=== PATIENT | female | born 1945 | race Caucasian/White ===

== ENCOUNTER 2017-06-04 03:23 | Inpatient (IN) | payer MEDICARE ==
[2017-06-04] VITALS (8 sets, daily range): BP systolic 96–113; BP diastolic 52–67; PULSE 62–110; RESP 16–20; TEMP 98–100.4; O2SAT 96–99
[~2017-06-04] VITALS: Ht 154.9 cm; Wt 65.5 kg
[2017-06-04] MEDS ORDERED: SODIUM CHLOR 0.9% 1000 ML INJ 1,000 ML IV SCH (03:41)
[2017-06-04] MEDS ORDERED: SODIUM CHLORIDE 0.9% FLUSH 10 ML FLUSH IV FLUSH PRN ×2 (03:45→06:15)
[2017-06-04] MEDS ORDERED: METOCLOPRAMIDE HCL 10 MG/2 ML VIAL IV PUSH ONE (03:45)
[2017-06-04] MEDS ORDERED: KETOROLAC TROMETHAMINE 30 MG/ML (IVP) VIAL IV PUSH ONE (03:45)
[2017-06-04] MEDS ORDERED: LIPI40TA PO (04:06)
[2017-06-04 04:14] LABS: AUTOMATED NEUTROPHIL # 5.9 TH/MM3 (1.8-7.7); BASOPHIL # 0.1 TH/MM3 (0-0.2); BASOPHIL % 0.7 % (0.0-2.0); EOSINOPHIL # 0.2 TH/MM3 (0-0.4); EOSINOPHIL % 2.2 % (0.0-4.0); HEMATOCRIT 37.1 % (35.0-46.0); HEMOGLOBIN 12.9 GM/DL (11.6-15.3); LYMPH % 9.8 % (9.0-44.0); LYMPHOCYTE # 0.7 TH/MM3 (1.0-4.8); MEAN CELL VOLUME 90.6 FL (80.0-100.0); MEAN CORPUSCULAR HEMOGLOBIN 31.3 PG (27.0-34.0); MEAN CORPUSCULAR HGB CONC 34.6 % (32.0-36.0); MEAN PLATELET VOLUME 8.2 FL (7.0-11.0); MONO % 8.3 % (0.0-8.0); MONOCYTE # 0.6 TH/MM3 (0-0.9); PLATELET COUNT 231 TH/MM3 (150-450); RED CELL DISTRIBUTION WIDTH 13.9 % (11.6-17.2); WHITE BLOOD COUNT 7.4 TH/MM3 (4.0-11.0)
[2017-06-04 04:24] LABS: INTERNATIONAL NORMALIZED RATIO 1.3 RATIO; PROTHROMBIN TIME - PATIENT 12.7 SEC (9.8-11.6)
[2017-06-04 04:31] LABS: ALKALINE PHOSPHATASE 226 U/L (45-117); TOTAL BILIRUBIN ADULT 4.3 MG/DL (0.2-1.0); TOTAL PROTEIN 6.9 GM/DL (6.4-8.2)
--- NOTE | 2017-06-04 04:33 | PD ---
HPI Chief Complaint: Complaint Time Seen by Provider: 03:35 Travel History International Travel<30 days: No Contact w/Intl Traveler<30days: No Traveled to known affect area: No History of Present Illness HPI 71-year-old female here for evaluation of flulike symptoms, abdominal pain, hematuria, dysuria, vomiting. Symptoms started 2 days ago. The patient is here on vacation from [place]. She states that she went to an urgent care facility yesterday and was diagnosed with the flu, however they did not start her on Tamiflu because she was outside of the 72 hour window. She describes fever, headache, neck pain which is moderate. She had one episode of vomiting yesterday. History of hysterectomy, appendectomy, cholecystectomy. PFSH Past Medical History High Cholesterol: Yes Tetanus Vaccination: > 5 Years Influenza Vaccination: No Past Surgical History Hysterectomy: Yes Other Surgery: Yes (Spinal surgery 2016) Social History Alcohol Use: No Tobacco Use: No Substance Use: No Allergies-Medications (Allergen,Severity, Reaction): Coded Allergies: codeine (Verified Allergy, Unknown, 06/04/17) Reported Meds & Prescriptions Reported Meds & Active Scripts Active Reported Lipitor (Atorvastatin Calcium) 40 Mg Tab 40 Mg PO HS Review of Systems Except as stated in HPI: all other systems reviewed are Neg Physical Exam Narrative GENERAL: Well-developed, well-nourished, comfortable, no apparent distress. SKIN: Focused skin assessment warm/dry. No rash. HEAD: Atraumatic. Normocephalic. EYES: Pupils equal and round. No scleral icterus. No injection or drainage. ENT: No nasal bleeding or discharge. Mucous membranes pink and moist. Normal pharynx. Bilateral tympanic membranes and external auditory canals are normal. NECK: Trachea midline. No JVD. No nuchal rigidity. CARDIOVASCULAR: Regular rate and rhythm. RESPIRATORY: No accessory muscle use. Clear to auscultation. Breath sounds equal bilaterally. GASTROINTESTINAL: Abdomen soft, non-tender, nondistended. MUSCULOSKELETAL: No obvious deformities. No clubbing. No cyanosis. No edema. NEUROLOGICAL: Awake and alert. No obvious cranial nerve deficits. Motor grossly within normal limits. Normal speech. PSYCHIATRIC: Appropriate mood and affect; insight and judgment normal. Data Data Last Documented VS Vital Signs Date Time Temp Pulse Resp B/P (MAP) Pulse Ox O2 Delivery O2 Flow Rate FiO2 06/04/17 04:12 99 Room Air 06/04/17 03:24 98.8 94 16 113/67 (82) Orders Orders Complete Blood Count With Diff (06/04/17 03:41) Comprehensive Metabolic Panel (06/04/17 03:41) Lipase (06/04/17 03:41) Prothrombin Time / Inr (Pt) (06/04/17 03:41) Act Partial Throm Time (Ptt) (06/04/17 03:41) Urinalysis - C+S If Indicated (06/04/17 03:41) Ct Abd/Pel W Iv Contrast(Rout) (06/04/17 03:41) Iv Access Insert/Monitor (06/04/17 03:41) Ecg Monitoring (06/04/17 03:41) Oximetry (06/04/17 03:41) Sodium Chlor 0.9% 1000 Ml Inj (Ns 1000 M (06/04/17 03:41) Sodium Chloride 0.9% Flush (Ns Flush) (06/04/17 03:45) Metoclopramide Inj (Reglan Inj) (06/04/17 03:45) Ketorolac Inj (Toradol Inj) (06/04/17 03:45) Influenzae A/B Antigen (06/04/17 03:41) Chest, Single Ap (06/04/17 ) Cath For Specimen (06/04/17 04:50) Iohexol 350 Inj (Omnipaque 350 Inj) (06/04/17 05:07) Urine Culture (06/04/17 05:00) Labs Laboratory Tests Test 06/04/17 03:55 06/04/17 05:00 White Blood Count 7.4 TH/MM3 Red Blood Count 4.10 MIL/MM3 Hemoglobin 12.9 GM/DL Hematocrit 37.1 % Mean Corpuscular Volume 90.6 FL Mean Corpuscular Hemoglobin 31.3 PG Mean Corpuscular Hemoglobin Concent 34.6 % Red Cell Distribution Width 13.9 % Platelet Count 231 TH/MM3 Mean Platelet Volume 8.2 FL Neutrophils (%) (Auto) 79.0 % Lymphocytes (%) (Auto) 9.8 % Monocytes (%) (Auto) 8.3 % Eosinophils (%) (Auto) 2.2 % Basophils (%) (Auto) 0.7 % Neutrophils # (Auto) 5.9 TH/MM3 Lymphocytes # (Auto) 0.7 TH/MM3 Monocytes # (Auto) 0.6 TH/MM3 Eosinophils # (Auto) 0.2 TH/MM3 Basophils # (Auto) 0.1 TH/MM3 CBC Comment DIFF FINAL Differential Comment Prothrombin Time 12.7 SEC Prothromb Time International Ratio 1.3 RATIO Activated Partial Thromboplast Time 29.2 SEC Blood Urea Nitrogen 18 MG/DL Creatinine 0.97 MG/DL Random Glucose 119 MG/DL Total Protein 6.9 GM/DL Albumin 3.1 GM/DL Calcium Level 8.8 MG/DL Alkaline Phosphatase 226 U/L Aspartate Amino Transf (AST/SGOT) 375 U/L Alanine Aminotransferase (ALT/SGPT) 658 U/L Total Bilirubin 4.3 MG/DL Sodium Level 136 MEQ/L Potassium Level 3.8 MEQ/L Chloride Level 103 MEQ/L Carbon Dioxide Level 24.0 MEQ/L Anion Gap 9 MEQ/L Estimat Glomerular Filtration Rate 57 ML/MIN Lipase 782 U/L Urine Color DARK-BROWN Urine Turbidity CLOUDY Urine pH 6.0 Urine Specific [place] 1.024 Urine Protein 100 mg/dL Urine Glucose (UA) NEG mg/dL Urine Ketones NEG mg/dL Urine Occult Blood SMALL Urine Nitrite NEG Urine Bilirubin MOD Urine Urobilinogen 4.0 MG/DL Urine Leukocyte Esterase LARGE Urine RBC 21 /hpf Urine WBC /hpf Urine Squamous Epithelial Cells 47 /hpf Urine Bacteria MANY /hpf Urine Mucus MANY /lpf Microscopic Urinalysis Comment CULTURE INDICATED MDM Medical Decision Making Medical Screen Exam Complete: Yes Emergency Medical Condition: Yes Differential Diagnosis Influenza, viral illness, URI, pneumonia, UTI, colitis, diverticulitis, dehydration/metabolic abnormality Narrative Course Vital signs reviewed. CBC is unremarkable. CMP is remarkable for T bili 4.3, AST 375, ALT 658, alk phos 226. Lipase is 382. UA Influenza is negative. Chest x-ray read as the lungs are clear. CT abdomen and pelvis read as no acute findings in the abdomen or pelvis. Patient was made aware of all findings. She has an occasional alcoholic beverage. She denies travel outside the country recently. She denies using Tylenol. The patient will be admitted for further treatment and evaluation of acute hepatitis, hyperbilirubinemia, elevated lipase. Diagnosis Primary Impression: Transaminitis Additional Impressions: Hyperbilirubinemia Elevated lipase UTI (urinary tract infection) Qualified Codes: N39.0 - Urinary tract infection, site not specified; R31.9 - Hematuria, unspecified Amos Tee MD Jun 04, 2017 04:33
[2017-06-04 04:35] LABS: ALBUMIN 3.1 GM/DL (3.4-5.0); ALT (GPT) 658 U/L (10-53); AST (GOT) 375 U/L (15-37); BLOOD UREA NITROGEN 18 MG/DL (7-18); CALCIUM 8.8 MG/DL (8.5-10.1); CHLORIDE 103 MEQ/L (98-107); CREATININE 0.97 MG/DL (0.50-1.00); GLOMERULAR FILTRATION RATE 57 ML/MIN (>89); GLUCOSE,RANDOM 119 MG/DL (74-106); SODIUM (NA) 136 MEQ/L (136-145)
[2017-06-04] MEDS ORDERED: IOHEXOL 350 MG/ML 10 ML VIAL (for RAD DIAG) IVCONTRAST ONE (05:07)
--- NOTE | 2017-06-04 05:19 | RADRPT ---
EXAM DATE/TIME: 06/04/2017 04:52 [facility] COMPARISON: No previous studies available for comparison. INDICATIONS : Fever and painful urination MEDICAL HISTORY : Hypercholesterolemia. SURGICAL HISTORY : Hysterectomy. ENCOUNTER: Initial ACUITY: 1 day PAIN SCORE: 8/10 LOCATION: Bilateral chest FINDINGS: A single view of the chest demonstrates the lungs to be symmetrically aerated without evidence of mas s, infiltrate or effusion. The cardiomediastinal contours are unremarkable. Osseous structures are intact. CONCLUSION: The lungs are clear. Brennan Estrada MD on June 04, 2017 at 5:18 Board Certified Radiologist. This report was verified electronically.
--- NOTE | 2017-06-04 05:26 | RADRPT ---
EXAM DATE/TIME: 06/04/2017 04:58 [facility] COMPARISON: No previous studies available for comparison. INDICATIONS : Patient with flu complains of abdominal pain, nausea and vomiting. Patient also has hematuria. IV CONTRAST: 96 cc Omnipaque 350 (iohexol) IV ORAL CONTRAST: No oral contrast ingested. RADIATION DOSE: 8.11 CTDIvol (mGy) MEDICAL HISTORY : Hypercholesterolemia. SURGICAL HISTORY : Appendectomy. Hysterectomy.Cholecystectomy. ENCOUNTER: Initial ACUITY: 2 days PAIN SCALE: 6/10 LOCATION: abdomen TECHNIQUE: Volumetric scanning of the abdomen and pelvis was performed. Using automated exposure control and ad justment of the mA and/or kV according to patient size, radiation dose was kept as low as reasonably achievable to obtain optimal diagnostic quality images. DICOM format image data is available electro nically for review and comparison. FINDINGS: LOWER LUNGS: The visualized lower lungs are clear. LIVER: Homogeneous density without solid lesion. 2.4 cm simple cyst lateral segment left lobe. There is no dilation of the biliary tree. Cholecystectomy. SPLEEN: Normal size without lesion. PANCREAS: Within normal limits. KIDNEYS: Normal in size and shape. There is no mass, stone or hydronephrosis. 1.3 cm cyst midpole left kidne y. ADRENAL GLANDS: Within normal limits. VASCULAR: There is no aortic aneurysm. BOWEL/MESENTERY: The stomach, small bowel, and colon demonstrate no acute abnormality. There is no free intraperitone al air or fluid. ABDOMINAL WALL: Within normal limits. RETROPERITONEUM: There is no lymphadenopathy. BLADDER: No wall thickening or mass. REPRODUCTIVE: Within normal limits. INGUINAL: There is no lymphadenopathy or hernia. MUSCULOSKELETAL: Bilateral transpedicular screws at L3, L4, L5. CONCLUSION: 1. No concerning findings in the abdomen/pelvis. Brennan Estrada MD on June 04, 2017 at 5:18 Board Certified Radiologist. This report was verified electronically.
[2017-06-04 05:31] LABS: BACTERIA, URINE MANY /hpf; BILIRUBIN, URINE MOD (NEG); BLOOD, URINE SMALL (NEG); GLUCOSE,URINE NEG (NEG); KETONE, URINE NEG (NEG); MUCUS URINE MANY /lpf (OCC); NITRITE,URINE NEG (NEG); SQUAMOUS EPITHELIAL CELL URINE 47 /hpf (0-5); URINE LEUKOCYTE ESTERASE LARGE (NEG)
[2017-06-04 05:35] LABS: URINE COLOR DARK-BROWN (YELLW/STRAW)
[2017-06-04] MEDS ORDERED: cefTRIAXone INJ 1,000 MG in SODIUM CHLORIDE 0.9% INJ 100 ML IV ONE (05:45)
[2017-06-04] MEDS ORDERED: ONDANSETRON HCL 4 MG/2 ML VIAL IVP PRN (06:15)
[2017-06-04] MEDS ORDERED: MORPHINE SULFATE 2 MG/ML INJ IV PUSH PRN (06:15)
[2017-06-04] MEDS ORDERED: BISACODYL 10 MG SUPP RECTAL PRN (06:15)
[2017-06-04] MEDS ORDERED: MAGNESIUM HYDROXIDE SUSP 30 ML CUP PO PRN (06:15)
[2017-06-04] MEDS ORDERED: LACTULOSE SYRUP 20 GM/30 ML CUP PO PRN (06:15)
[2017-06-04] MEDS ORDERED: SENNOSIDES 8.6 MG TAB PO PRN (06:15)
[2017-06-04] MEDS: SODIUM CHLOR 0.9% 1000 ML INJ 1,000 ML IV SCH ×3 (06:36→17:07)
[2017-06-04] MEDS: SODIUM CHLORIDE 0.9% FLUSH 10 ML FLUSH IV FLUSH SCH ×2 (08:53→20:53)
[2017-06-04] MEDS: DOCUSATE SODIUM 50 MG/SENNA 8.6 MG TAB PO SCH ×2 (08:54→20:54)
--- NOTE | 2017-06-04 09:17 | PD.CONS ---
HPI History of Present Illness This is a 71 year old female who had initial onset of mid abdominal pain with flulike symptoms of aching. According to the record she went to the urgent care and was diagnosed with the flu but was not started on Tamiflu because she was out of the 72 hour window. She did have one episode of nausea and vomiting on admission 06/03/17 to the emergency room, and has started with one episode of diarrhea this a.m. patient denies any bleeding or blood noted. During the exam patient states that her abdominal pain has completely subsided. She notes history of gallbladder surgery greater than 10 years ago and at that time had EGD and colonoscopy in the [facility]. She's currently on vacation and was hoping to return home by flight tomorrow or Monday. Patient currently is being treated with IV fluids, heart rate has been between 94 and 110, hemoglobin 12.9., Initial bilirubin 4.3, elevated LFTs 375/658, alkaline phosphatase 226, lipase 782. Currently patient has no obvious bleeding, denies any dysphasia, no further nausea or vomiting, denies any previous history of GI disorders or pancreatitis. (Jessica Gonzalez) PFSH Past Medical History Hyperlipidemia gallbladder disorders Past Surgical History Cholecystectomy Hysterectomy Spinal surgery 2015 according to the record (Jessica Gonzalez) Coded Allergies: codeine (Verified Allergy, Unknown, 06/04/17) Medications Administered Medications Medications (Trade) Dose Ordered Sig/José Luis Route PRN Reason Start Time Stop Time Status Last Admin Dose Admin Sodium Chloride 1,000 ml @ 100 mls/hr Q10H IV 06/04/17 06:03 06/04/17 06:36 Family History NA Social History Patient's currently lives with her Denies any tobacco, alcohol, or illicit drug use (Jessica Gonzalez) Review of Systems Gastrointestinal: COMPLAINS OF: Abdominal pain (now subsided within 24 hours), Diarrhea (started this a.m.), Nausea, Vomiting (now subsided it's admission) ( Jessica Gonzalez) GI Exam Vitals I&O Vital Signs Date Time Temp Pulse Resp B/P (MAP) Pulse Ox O2 Delivery O2 Flow Rate FiO2 06/04/17 08:39 98.0 105 20 96/54 (68) 96 06/04/17 06:35 110 16 100/59 (73) 96 Room Air 06/04/17 04:12 99 Room Air 06/04/17 03:24 98.8 94 16 113/67 (82) 97 Imaging Last Impressions Abdomen/Pelvis CT 06/04/17 0341 Signed Impressions: Service Date/Time: Sunday, June 04, 2017 04:58 - CONCLUSION: 1. No concerning findings in the abdomen/pelvis. Brennan Estrada MD Chest X-Ray 06/04/17 0000 Signed Impressions: Service Date/Time: Sunday, June 04, 2017 04:52 - CONCLUSION: The lungs are clear. Brennan Estrada MD Laboratory Test 06/04/17 03:55 06/04/17 05:00 White Blood Count 7.4 TH/MM3 Red Blood Count 4.10 MIL/MM3 Hemoglobin 12.9 GM/DL Hematocrit 37.1 % Mean Corpuscular Volume 90.6 FL Mean Corpuscular Hemoglobin 31.3 PG Mean Corpuscular Hemoglobin Concent 34.6 % Red Cell Distribution Width 13.9 % Platelet Count 231 TH/MM3 Mean Platelet Volume 8.2 FL Neutrophils (%) (Auto) 79.0 % Lymphocytes (%) (Auto) 9.8 % Monocytes (%) (Auto) 8.3 % Eosinophils (%) (Auto) 2.2 % Basophils (%) (Auto) 0.7 % Neutrophils # (Auto) 5.9 TH/MM3 Lymphocytes # (Auto) 0.7 TH/MM3 Monocytes # (Auto) 0.6 TH/MM3 Eosinophils # (Auto) 0.2 TH/MM3 Basophils # (Auto) 0.1 TH/MM3 CBC Comment DIFF FINAL Differential Comment Prothrombin Time 12.7 SEC Prothromb Time International Ratio 1.3 RATIO Activated Partial Thromboplast Time 29.2 SEC Blood Urea Nitrogen 18 MG/DL Creatinine 0.97 MG/DL Random Glucose 119 MG/DL Total Protein 6.9 GM/DL Albumin 3.1 GM/DL Calcium Level 8.8 MG/DL Alkaline Phosphatase 226 U/L Aspartate Amino Transf (AST/SGOT) 375 U/L Alanine Aminotransferase (ALT/SGPT) 658 U/L Total Bilirubin 4.3 MG/DL Sodium Level 136 MEQ/L Potassium Level 3.8 MEQ/L Chloride Level 103 MEQ/L Carbon Dioxide Level 24.0 MEQ/L Anion Gap 9 MEQ/L Estimat Glomerular Filtration Rate 57 ML/MIN Lipase 782 U/L Acetaminophen Level LESS THAN 2.0 MCG/ML Urine Color DARK-BROWN Urine Turbidity CLOUDY Urine pH 6.0 Urine Specific [place] 1.024 Urine Protein 100 mg/dL Urine Glucose (UA) NEG mg/dL Urine Ketones NEG mg/dL Urine Occult Blood SMALL Urine Nitrite NEG Urine Bilirubin MOD Urine Urobilinogen 4.0 MG/DL Urine Leukocyte Esterase LARGE Urine RBC 21 /hpf Urine WBC /hpf Urine Squamous Epithelial Cells 47 /hpf Urine Bacteria MANY /hpf Urine Mucus MANY /lpf Microscopic Urinalysis Comment CULTURE INDICATED Date/Time Source Procedure Growth Status 06/04/17 03:30 Nasal Washing Influenza Types A,B Antigen (ROCKY) - Final NEGATIVE FOR FLU A AND B ANTIGEN.... Complete 06/04/17 05:00 Urine Clean Catch Urine Culture Pending Received Physical Examination HEENT: Pupils round and reactive to light sclera dull; normocephalic; atraumatic ; oral clean NECK: Neck is supple, no JVD, no lymphadenopathy. CHEST: Chest anterior and posterior, no wheeze or rhonchi CARDIAC: HR 95-110 with mobility ABDOMEN: large, Soft, nondistended, nontender to light palpation, no plapable hepatosplenomegaly; bowel sounds are present in all four quadrants. EXTREMITIES: No clubbing, cyanosis, or edema. SKIN: pale; no rash; no obvious jaundice. [employer]ER: No focal deficits; alert and oriented times three. (Jessica Gonzalez) Assessment and Plan Plan Transaminitis, appears to be a acute onset symptoms started 2 days ago. Denies any history of GI problems, no history of any liver disease Hyperbilirubinemia, initial bilirubin 4.3, 24 hours into her admission she does not appear to be icteric, sclera is dull. Possible obstruction, nonalcoholic related, versus autoimmune. Alkaline phosphatase 226 Elevated lipase level, first known bout of pancreatitis symptoms have subsided this morning the patient is having some diarrhea 1 event. She did receive 1 dose of Reglan IV, and has been placed on Rocephin IV every 24, which could've predisposed her diarrhea. , History/patient is from the [facility] here on vacation hoping to return back to her home and her physicians, but does realize she needs to be stable for flight before leaving. Nausea vomiting, on admission which seems to be subsiding Diarrhea, 1 this a.m., Plan MRCP today Continue IV fluids Pepcid 10 mg by mouth twice a day Hepatitis profile, a.m. Liver ultrasound Intake and output, monitor bouts of diarrhea Monitor labs, CMP lipase ordered for the a.m. Supportive care This patient was seen per myself and Dr. Damon, note was written on his behalf (Jessica Gonzalez) Physician Comments Seen and examined with [employer], feeling better. MRCP/U/S/CT -ve for obstruction. Probable viral etiology. No previous h/o liver disease, no etoh. Repeat lfts if improved can dc home with gi fu with local GI in [place]. Thank you (Yulissa Damon MD) Jessica Gonzalez Jun 04, 2017 09:17 Yulissa Damon MD Jun 04, 2017 12:32
--- NOTE | 2017-06-04 11:04 | RADRPT ---
EXAM DATE/TIME: 06/04/2017 10:04 [facility] COMPARISON: No previous studies available for comparison. INDICATIONS : Increased lab values. MEDICAL HISTORY : Vomiting. Abdominal pain. SURGICAL HISTORY : Hysterectomy. Cholecystectomy. Appendectomy. Spinal surgery. ENCOUNTER: Initial ACUITY: 2 days PAIN SCORE: 3/10 LOCATION: Abdomen. MEASUREMENTS: LIVER: 16.7 cm length COMMON DUCT: 5 mm RIGHT KIDNEY: 10.3 x 4.8 x 4.2 cm SPLEEN: 9.1 cm length FINDINGS: LIVER: Normal echotexture without focal lesion or ductal dilatation. COMMON DUCT: No intraluminal mass or stone visualized. GALLBLADDER: Surgically absent PANCREAS: The visualized portions are within normal limits. RIGHT KIDNEY: No hydronephrosis, stone or mass. SPLEEN: No focal lesion. CONCLUSION: Unremarkable ultrasound in this patient who is status post cholecystectomy.. David Eaton MD FACR on June 04, 2017 at 11:03 Board Certified Radiologist. This report was verified electronically.
--- NOTE | 2017-06-04 11:27 | RADRPT ---
EXAM DATE/TIME: 06/04/2017 10:43 [facility] COMPARISON: CT ABDOMEN & PELVIS W CONTRAST, June 04, 2017, 4:58. INDICATIONS : Obstruction. MEDICAL HISTORY : None. SURGICAL HISTORY : Fusion, lumbar. Cholecystectomy. Hysterectomy. ENCOUNTER: Initial ACUITY: 1 day PAIN SCORE: 5/10 LOCATION: Abdomen. TECHNIQUE: Multiplanar, multisequence magnetic resonance imaging of the abdomen was performed. High-resolution 3D dataset was utilized to reconstruct maximum-intensity projection (MIP) images. FINDINGS: Small 2.6 cm bilobed cyst left lobe of the liver. Gallbladder surgically absent No intrahepatic biliary duct dilatation Gallbladder unremarkable Pancreas appears normal Spleen is unremarkable Small renal cyst the left, largest parapelvic location measuring 1.6 cm. CONCLUSION: Unremarkable MRCP. I do not see ancillary signs of common duct obstruction. David Etaon MD FACR on June 04, 2017 at 11:22 Board Certified Radiologist. This report was verified electronically.
[2017-06-04] MEDS: FAMOTIDINE 20 MG TAB PO SCH ×2 (11:42→20:53)
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
[2017-06-04] MEDS ORDERED: guaiFENesin/DEXTROMETHORPHAN 200 MG/20 MG/10 ML CUP PO PRN (16:00)
[2017-06-05] MEDS: SODIUM CHLOR 0.9% 1000 ML INJ 1,000 ML IV SCH (02:03)
[2017-06-05 03:05] VITALS: BP 117/58; PULSE 108; RESP 18; TEMP 98.3; O2SAT 96
[2017-06-05] MEDS ORDERED: cefTRIAXone INJ 1,000 MG in SODIUM CHLORIDE 0.9% INJ 100 ML IV SCH (06:00)
[2017-06-05 07:03] LABS: AUTOMATED NEUTROPHIL # 6.8 TH/MM3 (1.8-7.7); BASOPHIL % 0.6 % (0.0-2.0); EOSINOPHIL # 0.1 TH/MM3 (0-0.4); EOSINOPHIL % 0.8 % (0.0-4.0); HEMATOCRIT 35.3 % (35.0-46.0); HEMOGLOBIN 12.1 GM/DL (11.6-15.3); LYMPH % 9.8 % (9.0-44.0); LYMPHOCYTE # 0.8 TH/MM3 (1.0-4.8); MEAN CELL VOLUME 91.1 FL (80.0-100.0); MEAN CORPUSCULAR HEMOGLOBIN 31.1 PG (27.0-34.0); MEAN CORPUSCULAR HGB CONC 34.2 % (32.0-36.0); MEAN PLATELET VOLUME 8.6 FL (7.0-11.0); MONO % 10.8 % (0.0-8.0); MONOCYTE # 0.9 TH/MM3 (0-0.9); PLATELET COUNT 225 TH/MM3 (150-450); RED BLOOD COUNT 3.88 MIL/MM3 (4.00-5.30); RED CELL DISTRIBUTION WIDTH 14.3 % (11.6-17.2); WHITE BLOOD COUNT 8.7 TH/MM3 (4.0-11.0)
[2017-06-05 07:33] LABS: ALBUMIN 2.7 GM/DL (3.4-5.0); ALT (GPT) 457 U/L (10-53); AST (GOT) 195 U/L (15-37); BICARBONATE 23.8 MEQ/L (21.0-32.0); BLOOD UREA NITROGEN 19 MG/DL (7-18); CALCIUM 8.3 MG/DL (8.5-10.1); CHLORIDE 107 MEQ/L (98-107); CHOLESTEROL 107 MG/DL (120-200); CREATININE 0.84 MG/DL (0.50-1.00); GLOMERULAR FILTRATION RATE 67 ML/MIN (>89); GLUCOSE,RANDOM 113 MG/DL (74-106); SODIUM (NA) 138 MEQ/L (136-145); TRIGLYCERIDES 111 MG/DL (42-150)
[2017-06-05 07:42] LABS: ALKALINE PHOSPHATASE 200 U/L (45-117); CHOLESTEROL/ HDL RATIO 4.65 RATIO; LDL CHOLESTEROL 62 MG/DL (0-99); TOTAL BILIRUBIN ADULT 4.2 MG/DL (0.2-1.0); TOTAL PROTEIN 6.4 GM/DL (6.4-8.2)
[2017-06-05 08:00] VITALS: BP 98/64; PULSE 112; RESP 19; TEMP 98; O2SAT 96
[2017-06-05] MEDS: FAMOTIDINE 20 MG TAB PO SCH (08:53)
[2017-06-05] MEDS: DOCUSATE SODIUM 50 MG/SENNA 8.6 MG TAB PO SCH (08:53)
[2017-06-05] MEDS: SODIUM CHLORIDE 0.9% FLUSH 10 ML FLUSH IV FLUSH SCH (08:53)
[2017-06-05] MEDS ORDERED: CIPR-9 PO (09:58)
--- NOTE | 2017-06-05 10:00 | HHI.PR ---
Subjective Remarks Follow up with UTI/Transaminitis 06/05/17-patient seen and examined, LFTs trending down and patient denies any abnormal pain. No nausea or emesis with PO intake. Afebrile. lipase wnl Objective Vitals Vital Signs Date Time Temp Pulse Resp B/P (MAP) Pulse Ox O2 Delivery O2 Flow Rate FiO2 06/05/17 08:00 98.0 112 19 98/64 (75) 96 06/05/17 03:05 98.3 108 18 117/58 (77) 96 06/04/17 23:55 100.4 81 18 102/56 (71) 98 06/04/17 20:00 100.1 74 18 100/58 (72) 96 06/04/17 16:17 98.0 62 18 98/52 (67) 96 06/04/17 11:59 98.2 88 18 98/55 (69) 96 I/O 06/04/17 06/04/17 06/04/17 06/05/17 06/05/17 06/05/17 07:00 15:00 23:00 07:00 15:00 23:00 Intake Total 400 ml Balance 400 ml Intake Oral 300 ml IV Total 100 ml Result Diagram: 06/05/17 0620 06/05/17 0620 Imaging Last Impressions Abdomen/Pelvis CT 06/04/17 0341 Signed Impressions: Service Date/Time: Sunday, June 04, 2017 04:58 - CONCLUSION: 1. No concerning findings in the abdomen/pelvis. Brennan Estrada MD Liver Ultrasound 06/04/17 0000 Signed Impressions: Service Date/Time: Sunday, June 04, 2017 10:04 - CONCLUSION: Unremarkable ultrasound in this patient who is status post cholecystectomy.. David Eaton MD FACR Cholangiopancreatography MRI 06/04/17 0000 Signed Impressions: Service Date/Time: Sunday, June 04, 2017 10:43 - CONCLUSION: Unremarkable MRCP. I do not see ancillary signs of common duct obstruction. David Eaton MD FACR Chest X-Ray 06/04/17 0000 Signed Impressions: Service Date/Time: Sunday, June 04, 2017 04:52 - CONCLUSION: The lungs are clear. Brennan Estrada MD Objective Remarks GENERAL: NAD SKIN: Warm and dry. HEAD: Normocephalic. EYES: No scleral icterus. No injection or drainage. NECK: Supple, trachea midline. No JVD or lymphadenopathy. CARDIOVASCULAR: Regular rate and rhythm without murmurs, gallops, or rubs. RESPIRATORY: Breath sounds equal bilaterally. No accessory muscle use. GASTROINTESTINAL: Abdomen soft, non-tender, nondistended. MUSCULOSKELETAL: No cyanosis, or edema. BACK: Nontender without obvious deformity. No CVA tenderness. Procedures None A/P Problem List: (1) UTI (urinary tract infection) ICD Code: N39.0 - Urinary tract infection, site not specified Status: Acute (2) Elevated lipase ICD Code: R74.8 - Abnormal levels of other serum enzymes Status: Resolved (3) Transaminitis ICD Code: R74.0 - Nonspecific elevation of levels of transaminase and lactic acid dehydrogenase [LDH] Status: Acute (4) Hyperbilirubinemia ICD Code: E80.6 - Other disorders of bilirubin metabolism Status: Acute Assessment and Plan 71-year-old female with Urinary Tract Infection - UA +, pending cultures - On Ceftriaxone IV and will switch to PO Cipro Transaminitis, acute liver failure Elevated lipase-now within normal limit Jaundice - LFTs trending down -MRCP 06/04/17 unremarkable -CT of the abdomen and pelvis no concerning findings and abdomen and pelvis -Ultrasound of the liver is unremarkable status post cholecystectomy -Hepatitis profile pending -Check lipid panel, hold off Lipitor -Appreciate input from GI Cough-Resolved -Lungs are clear -Incentive spirometry. Mucinex DVT prop SCDs, Discharge Planning Discharge patient to home Condition on discharge: Improved Regular Diet as tolerated Ad Kim activity Rx written: see EMR Follow-up with primary care physician in 1week Problem Qualifiers (1) UTI (urinary tract infection): Qualified Codes: N39.0 - Urinary tract infection, site not specified; R31.9 - Hematuria, unspecified Sp Chang MD Jun 05, 2017 10:00
[2017-06-05 10:44] LABS: HEPATITIS A AB IGM NEGATIVE (NEGATIVE); HEPATITIS B CORE AB IGM NEGATIVE (NEGATIVE); HEPATITIS B SURFACE ANTIGEN NEGATIVE (NEGATIVE); HEPATITIS C AB IgG NEGATIVE (NEGATIVE)
[2017-06-05 16:23] LABS: HEMOGLOBIN A1C 5.4 % (4.3-6.0)
== END 2017-06-05 11:24 | disposition home or self-care (01) | DRG 947 ==
LOC: NEPC 03:23 → NEDA 05:55 → OBSVTOIN 05:55 → INTOOBSV 05:55 → NEPHCDU 06:47
PROVIDERS: ADMIT Hospitalist; ATTEND Hospitalist
DX: R74.0 Nonspecific elevation of levels of transaminase and lactic acid dehydrogenase [LDH] (principal); K72.00 Acute and subacute hepatic failure without coma; N39.0 Urinary tract infection, site not specified; R31.9 Hematuria, unspecified; R51 Headache; M54.2 Cervicalgia; E78.00 Pure hypercholesterolemia, unspecified; R05 Cough; E78.5 Hyperlipidemia, unspecified; E80.6 Other disorders of bilirubin metabolism; R74.8 Abnormal levels of other serum enzymes; R19.7 Diarrhea, unspecified; Z90.49 Acquired absence of other specified parts of digestive tract
CPT/HCPCS: 71045; 74177; 74181; 76377; 76705; 80053; 80061; 80074; 80307; 81001; 83036; 83690; 84443; 85025; 85610; 85730; 87086; 87804; 96361; 96374; 96375; J0696; J1885; J2765; J7030; Q9967